=== PATIENT | female | born 1990 | race Caucasian/White ===

== ENCOUNTER 2024-02-14 19:35 | Outpatient (CLI) | payer BC ==
[~2024-02-14] VITALS: Ht 167.6 cm; Wt 90.5 kg
--- NOTE | 2024-02-14 19:45 | NUR ---
G4L2. 39.5. Pt to LDR 2. Clean gown on. EFM and TOCO explained and applied. Pt states she has been armani for the last 24 hours but states her contractions are now 5 mins apart lasting 45 seconds and more intense. Pt reports membranes being swep yesterday and since then she has had some bloody discharge. Denies leaking of fluids. Reports good movement. Plan of care explained to pt. 2099: SVE unchanged. Pt very anxious about contractions and states she doesnt know when to come back if contractions feel like this now. Education and emotional support given to pt. 2114: at nurses station and updated on pts status. Provider reviews FHR strip. Discharge orders received. 2134: Discharge education given to pt and spouse who verbalize their understanding. Questions answered. Pt ambulatory off unit and home with spouse.
[2024-02-14 20:15] VITALS: BP 133/83; PULSE 88; TEMP 98.2
[2024-02-14 20:45] VITALS: BP 119/75; PULSE 93
[2024-02-14 21:14] VITALS: BP 141/81; PULSE 79
[2024-02-14] MEDS ORDERED: LR 1,000 ML IV PRN (21:30)
[2024-02-14] MEDS ORDERED: ZOLOFT 25MG25 MG PO (22:17)
[2024-02-14] MEDS ORDERED: MAG-G500 MG PO (22:17)
[2024-02-14] MEDS ORDERED: SYNTHROID0.088 MG/T PO (22:17)
[2024-02-14] MEDS ORDERED: PRENATAL MVI PO (22:18)
== END 2024-02-14 21:35 | disposition home or self-care (01) ==
LOC: LDRO 19:35
DX: O47.1 False labor at or after 37 completed weeks of gestation (principal); Z3A.39 39 weeks gestation of pregnancy

== ENCOUNTER 2024-02-14 23:59 | Inpatient (IN) | payer BC ==
[~2024-02-14] VITALS: Ht 167.6 cm; Wt 90.5 kg
[~2024-02-14 23:59] MED LIST: MAG-G500 MG PO; PRENATAL MVI PO; SYNTHROID0.088 MG/T PO; ZOLOFT 25MG25 MG PO
[2024-02-15] VITALS (65 sets, daily range): BP systolic 102–166; BP diastolic 37–89; PULSE 54–100; TEMP 97.4–98.9
--- NOTE | 2024-02-15 | NUR ---
G4L2. 39.6. Back to LDR 2. Clean gown on. EFM and TOCO applied. Pt states since she was discharged home she tried to take tylenol but her contractions just got worse and closer together. Pt unsure if her water broke in the ER and reports some bloody show since being at the hospital last. Reports good movement. 0015: SVE 4/80/-2. Pt requesting an epidural at this time. 0019: called and updated on pt's status. See physican notification. Admit orders recieved. [id number]:Pt sitting on edge of bed. Difficulty tracing FHR due to maternal pain and movement. 0040: IV started and labs obtained via IV site. LR bolus infusing without difficulty. 0108: Marilin AMADOR at bedside for epiudral placement. Procedure explained to pt who verbalizes her understanding. Pt sitting on edge of bed for epiudral placement. Difficulty tracing FHR due to maternal position. Pulse ox applied. 0119: Test dose administered by Lelo AMADOR. See anesthesia records. 0125: Pt assisted to wedge left position. Plan of care and safety precautions explained to pt who verbalized her understanding
[2024-02-15] MEDS ORDERED: LR & Oxytocin 500 ML IV SCH (00:30)
[2024-02-15] MEDS ORDERED: LR 1,000 ML IV SCH (00:30)
[2024-02-15 00:54] LABS: BASO % 0.2 % (0.0-2.0); EOS % 0.1 % (0.0-4.0); GRAN % 82.7 % (42.2-75.2); HEMATOCRIT 42.9 % (37.0-47.0); HEMOGLOBIN 14.6 g/dl (12.5-16.0); LYMPH # 1.7 K/mm3 (1.2-3.4); LYMPH % 11.6 % (20.0-51.0); MEAN CELL VOLUME 89 fl (80.0-100.0); MEAN CORPUSCULAR HEMOGLOBIN 30 pg (27-31); MEAN CORPUSCULAR HGB CONC 34 g/dl (33.0-37.0); MEAN PLATELET VOLUME 11.2 fl (7.4-10.4); MONO # 0.7 K/mm3 (0.1-0.6); MONO % 4.8 % (1.7-9.3); PLATELET COUNT 229 K/mm3 (130-400); RED BLOOD COUNT 4.83 M/mm3 (4.10-5.30); REDCELL DISTRIBUTION WIDTH-CV 12.3 % (11.5-14.5)
[2024-02-15] MEDS ORDERED: ROPivacaine PF 0.2% 200 ML IV ONE (01:02)
[2024-02-15] MEDS ORDERED: diphenhydrAMINE 25 MG CAP PO PRN (02:15)
[2024-02-15] MEDS ORDERED: ePHEDrine 50 MG/10 ML VIAL IV PRN (02:15)
[2024-02-15] MEDS ORDERED: Naloxone 0.4 MG/ML VIAL IV PRN ×2 (02:15→17:00)
[2024-02-15] MEDS ORDERED: Ondansetron 4 MG/2 ML VIAL IV PRN (02:15)
[2024-02-15] MEDS ORDERED: diphenhydrAMINE 50 MG/ML 1 ML VIAL IV PRN (02:15)
[2024-02-15] MEDS ORDERED: Chloroprocaine PF 3% (30 MG/ML) 20 ML VIAL ONE (15:10)
[2024-02-15] MEDS ORDERED: Loratadine 10 MG TAB PO PRN (16:30)
[2024-02-15] MEDS ORDERED: Magnes Hydrox (MOM) 80 MG/ML 30 ML CUP PO PRN (16:30)
[2024-02-15] MEDS ORDERED: Ibuprofen 800 MG TAB PO SCH (17:00)
[2024-02-15] MEDS ORDERED: Sennosides/Docusate 8.6-50 MG TAB PO SCH (17:00)
[2024-02-15] MEDS ORDERED: Acetaminophen 500 MG TAB PO SCH (17:00)
[2024-02-15] MEDS ORDERED: Mag/Al Hydrox/Simeth Susp 30 ML CUP PO PRN (17:00)
[2024-02-15] MEDS ORDERED: Witch Hazel 50% Pads Bulk TUB TP PRN (17:00)
[2024-02-15] MEDS ORDERED: Phenylephrine/Mineral Oil/Petrolatum 57 GM TUBE RC PRN (17:00)
[2024-02-15] MEDS ORDERED: Measles/Mumps/Rubella Virus Vaccine Live w Diluent 0.5 ML VIAL SQ SCH (17:00)
[2024-02-15] MEDS ORDERED: oxyCODONE 5 MG TAB PO PRN (17:00)
--- NOTE | 2024-02-15 17:30 | NUR ---
SRINIVAS CALLED AT 1455. HERE AT 1510 TO REDOSE EPIDURAL. PATIENT ABLE TO GET SOME RELIEF. PATIENT FEELING PRESSURE AT 1555. SVE COMPLETE. DR NAJERA, NURSERY AND CHARGE NOTIFIED. PATIENT PUSHED THROUGH THREE CONTRACTIONS AND A LIVE MALE INFANT SPONTANEOUSLY DELIVERED. DLEAYED CORD CLAMPING FOR 90 SECONDS. CORD CLAMPED AND CUT BY FOB, BABY TO MOMS CHEST TO BE WARMED DRIED AND STIMULATED. PATIENT TOLERATED WELL. 1ST DEGREE PERINEAL LACTERATION REPAIRED WITH A CHROMIC GUT SUTURE. MOM AND BABY DOING WELL. BABY SKIN TO SKIN. MOM CLEANED UP AND NEW BLANKETS AND ICE PACK GIVEN. BLEEDING WNL. VSS. WILL CONTINUE TO MONITOR
--- NOTE | 2024-02-15 18:20 | NUR ---
Assisted out of bed, up to bathroom for first time. Steady gait noted. Spontaneous void without difficulty. Lori care provided. Transferred to room 214.
--- NOTE | 2024-02-15 20:43 | NUR ---
Up to shower at this time.
[2024-02-15] MEDS ORDERED: traZODone 50 MG TAB PO PRN (21:00)
--- NOTE | 2024-02-15 22:41 | NUR ---
Nipple shells provided with instruction for use. Verbalizes understanding.
--- NOTE | 2024-02-16 00:25 | NUR ---
Patient requests not to be disturbed in the night unless she calls out for assistance.
[2024-02-16 01:00] VITALS: BP 141/73; PULSE 77; TEMP 97.6
--- NOTE | 2024-02-16 04:45 | NUR ---
Discussed next dose of Tylenol due @ 0600. Patient requests not to be woke up for this dose or Levothyroxine @ 0700.
--- NOTE | 2024-02-16 05:04 | NUR ---
Patient requests to take her own Levothyroxine, will call out when she is ready for her Tylenol. Wishes not to be woke up.
[2024-02-16 07:26] VITALS: BP 110/57; PULSE 87; TEMP 97.5
[2024-02-16] MEDS ORDERED: Sertraline 25 MG TAB PO SCH (09:00)
[2024-02-16] MEDS ORDERED: MOTRIN 800800 MG/TAB PO (12:04)
[2024-02-16 13:00] VITALS: BP 105/55; PULSE 82; TEMP 98
[2024-02-16] MEDS ORDERED: Acetaminophen 500 MG TAB PO SCH (13:00)
--- NOTE | 2024-02-16 14:39 | NUR ---
1400 THIS RN RESUMES CARE FROM TOMASA FUENTES. PT AWARE AND UPDATED WITH PLAN. PT ASKS FOR HEATING PAD FOR BACK. KPAD SET UP AND PROVIDED TO PATIENT AT THIS TIME.
[2024-02-16 17:10] VITALS: BP 117/72; PULSE 80; TEMP 97.9
--- NOTE | 2024-02-16 19:10 | NUR ---
PO tylenol given before discharge. Discharge instructions reviewed previously by TOMASA Young. Pt ambulatory off unit in stable condition with belongings.
== END 2024-02-16 19:10 | disposition home or self-care (01) | DRG 807 ==
LOC: LDRO 23:59 → LDR 02-15 00:20 → OB 02-15 18:30
PROVIDERS: Obstetrics & Gynecology; ADMIT Student in an Organized Health Care Education/Training Program
PROC: 10E0XZZ Delivery of Products of Conception, External Approach (ICD-10-PCS; principal; 2024-02-15)
PROC: 0HQ9XZZ Repair Perineum Skin, External Approach (ICD-10-PCS; 2024-02-15)
DX: O99.284 Endocrine, nutritional and metabolic diseases complicating childbirth (principal); Z37.0 Single live birth; O70.0 First degree perineal laceration during delivery; F41.9 Anxiety disorder, unspecified; E03.9 Hypothyroidism, unspecified; O99.344 Other mental disorders complicating childbirth; O69.81X0 Labor and delivery complicated by cord around neck, without compression, not applicable or unspecified; Z3A.39 39 weeks gestation of pregnancy
CPT/HCPCS: J1200; J2401; J2590; J2795; J7120